=== PATIENT | male | born 1935 | race Caucasian/White ===

== ENCOUNTER → 2019-04-29 | Day surgery (SDC) | payer MEDICARE, BC ==
--- NOTE | 2019-04-25 14:09 | Diagnostic Imaging Report ---
PROCEDURE: X-RAY CHEST, TWO VIEWS COMPARISON: None. INDICATIONS: PRE OP FOR BLADDER SX FINDINGS: LUNGS: No consolidations or edema.Scattered foci of linear opacity likely reflects age-related or post inflammatory fibrosis. PLEURA: No effusions or pneumothorax. HEART & MEDIASTINUM: The heart is within normal size-limits. Atherosclerotic calcification of the thoracic aorta. No pulmonary edema. BONES & SOFT TISSUES: No acute findings. CONCLUSION: No acute cardiopulmonary abnormality. Dictated by: Lincoln Hudson M.D. on 04/25/2019 at 14:13 Electronically approved by: Lincoln Hudson M.D. on 04/25/2019 at 14:13
[2019-04-25 14:36] LABS: BASOPHILS % 0.4 % (0.0-1.0); EOSINOPHILS # (AUTO) 0.1 (0.0-0.4); EOSINOPHILS % 1.3 % (0.0-6.0); HEMATOCRIT 46.8 % (38.2-49.6); HEMOGLOBIN 15.1 g/dL (14.0-18.0); LYMPHOCYTES # (AUTO) 1.7 (1.0-3.2); LYMPHOCYTES % 30.9 % (18.0-39.1); MEAN CORPUSCULAR HEMOGLOBIN 29.9 pg (28-32); MEAN CORPUSCULAR HGB CONC 32.3 g/dL (31-35); MEAN CORPUSCULAR VOLUME 92.7 fL (81-99); MONOCYTES # (AUTO) 0.5 (0.2-0.8); MONOCYTES % 8.9 % (4.4-11.3); NEUTROPHILS # (AUTO) 3.1 (2.1-6.9); NEUTROPHILS % 58.3 % (38.7-80.0); PLATELET COUNT 176 x10e3/uL (140-360); RED BLOOD COUNT 5.05 x10e6/uL (4.3-5.7); RED CELL DISTRIBUTION WIDTH 12.9 % (11.7-14.4)
[2019-04-25 14:43] LABS: INR 0.96; PARTIAL THROMBOPLASTIN TIME 32.4 seconds (23.8-35.5); PROTHROMBIN TIME 13.3 seconds (11.9-14.5)
[2019-04-25 14:52] LABS: ALANINE AMINOTRANSFERASE 21 IU/L (0-55); ALBUMIN 4.1 g/dL (3.5-5.0); ALBUMIN/GLOBULIN RATIO 1.4 (0.8-2.0); ALKALINE PHOSPHATASE 91 IU/L (40-150); ANION GAP 12.7 mmol/L (8-16); BLOOD UREA NITROGEN 15 mg/dL (7-26); BUN/CREATININE RATIO 15 (6-25); CALCIUM 9.5 mg/dL (8.4-10.2); CARBON DIOXIDE 30 mmol/L (22-29); CHLORIDE 101 mmol/L (98-107); CREATININE, SERUM 0.97 mg/dL (0.72-1.25); EST GLOMERULAR FILTRATION RATE > 60 ML/MIN (60-); GLUCOSE 99 mg/dL (74-118); POTASSIUM 4.7 mmol/L (3.5-5.1); SODIUM 139 mmol/L (136-145)
[~2019-04-29] MED LIST: CEFOXITIN 1GM/ D5W 50ML 50 ML IV ONE; COMBIGAN EYE DRO5 ML OU; DESFLURANE 240 ML BTL INH ONE; DEXAMETHASONE SOD PHOS INJ 4 MG/ML VIAL ONE; FENTANYL CITRATE/PF 100MCG/2 ML INJ ONE; IOPAMIDOL 610MG/1ML 300 MG/ML VIAL IV ONE; LATANOPROST2.5 ML OP; LUMIGAN2.5 M1 OP; MACROBID 100 M100 MG PO; ONDANSETRON HCL INJ 2MG/ML 2ML 2 MG/ML VIAL ONE; PROPOFOL IV EMULSION 10 MG/ML 20 ML VIAL ONE
--- OUTSIDE RECORDS SUMMARY | 2019-04-29 10:23 | XMS REPORT | Clinical Summary ---
Author Author [facility] Address Unknown Phone Unavailable Care Team Providers Care Service Center Supervisor Name Role Phone Stacey Alonso MD PCP Allergies Comments Active Allergy Reactions Severity Noted Date No Known Drug Allergies 05/08/2016 Medications End Date Status Medication Sig Dispensed Refills Start Date Active LUMIGAN 0.01 % ophthalmic INT 1 GTT IN 4 drops OD HS 6 Active COMBIGAN 0.2-0.5 % INSTILL 1 GTT 3 ophthalmic solution IN OD TID 6 Active latanoprost (XALATAN) INT 1 GTT IN 0 0.005 % ophthalmic RIGHT EYE QHS 6 solution Active mucus clearing device Use 10-20 1 Device 0 (AEROBIKA OSCILLATING PEP minutes 3 7 SYSTM) device times a day 07/07/2018 Discontinued riFAMpin (RIFADIN) 300 MG Take 1 180 capsule 0 capsule capsule (300 8 mg total) by mouth 2 (two) times a day for 90 days. 07/07/2018 Discontinued ethambutol (MYAMBUTOL) Take 2 60 tablet 1 400 MG tabletIndications: tablets daily 8 Mycobacterium avium infection (HCC) 07/01/2018 Discontinued azithromycin (ZITHROMAX) 1 tablet 30 tablet 0 250 MG tablet daily for 30 8 days 07/05/2018 azithromycin (ZITHROMAX) 1 tablet 30 tablet 0 250 MG tablet daily for 30 8 days 07/07/2018 Discontinued azithromycin (ZITHROMAX) Take 250 mg 0 250 MG tablet by mouth. Take 2 tablets the first day, then 1 tablet daily for 4 days. 09/06/2018 ethambutol (MYAMBUTOL) Take 2 60 tablet 1 400 MG tabletIndications: tablets daily 8 Mycobacterium avium infection (HCC) 10/05/2018 azithromycin (ZITHROMAX) Take 1 tablet 30 tablet 2 250 MG tablet (250 mg 8 total) by mouth daily for 90 days. 10/05/2018 riFAMpin (RIFADIN) 300 MG Take 1 180 capsule 0 capsule capsule (300 8 mg total) by mouth 2 (two) times a day for 90 days. 03/05/2019 tamsulosin (FLOMAX) 0.4 Take 1 5 capsule 0 mg capsuleIndications: capsule (0.4 9 Hematuria, unspecified mg total) by type, Flank pain, History mouth daily of kidney stones with dinner for 5 days. 04/14/2019 diclofenac (VOLTAREN) 1 % Apply 100 g 2 gel topically 4 9 (four) times a day for 30 days. 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); Mycobacterium avium complex (HCC) 03/15/2019 Office Visit Family Stacey Tabor MD Back pain, unspecified back location, unspecified back pain laterality, unspecified chronicity (Primary Dx); Hematuria, unspecified type; Flank pain; History of kidney stones; Elevated blood pressure reading in office with diagnosis of hypertension 02/28/2019 Office Visit Family Chivo Avina MD MAI (mycobacterium avium-intracellulare) infection (HCC) (Primary Dx) 01/12/2019 Office Visit Pulmonology Joselo Allen MD Skin lesion of face (Primary Dx) 07/09/2018 Office Visit Family Chivo Avina MD Mycobacterium avium infection 07/07/2018 Office Visit Pulmonology Chiqui Lala MA 07/01/2018 Refill Family Medicine Chiqui Lala MA 06/29/2018 Refill Family Medicine Eri Collier MA 06/24/2018 Patient Quality Outreach Joselo Allen MD Mycobacterium avium infection (Primary Dx) 06/17/2018 Orders Only Family Medicine Nany Nicole MD Chest pain at rest (Primary Dx) 06/13/2018 Emergency Emergency Medicine - 06/14/2018 after 04/28/2018 Family History Medical History Relation Name Comments Heart attack Father Cancer Mother stomach? Relation Name Status Comments Father Mother (Age 70) Social History Date Tobacco Use Types Packs/Day Years Used Never Smoker Smokeless Tobacco: Never Used Alcohol Use Drinks/Week oz/Week Comments No Sex Assigned at Date Recorded Not on file Industry Job Start Date Occupation Not on file Not on file Not on file Travel End Travel History Travel Start No recent travel history available. Last Filed Vital Signs Time Taken Vital Sign Reading 03/15/2019 12:52 PM CDT Blood Pressure 135/77 03/15/2019 12:52 PM CDT Pulse 64 03/15/2019 12:52 PM CDT Temperature 36.8 C (98.2 F) 01/12/2019 11:32 AM CDT Respiratory Rate 12 03/15/2019 12:52 PM CDT Oxygen Saturation 97% - Inhaled Oxygen - Concentration 03/15/2019 12:52 PM CDT Weight 69.9 kg (154 lb) 03/15/2019 12:52 PM CDT Height 175.3 cm (5' 9") 03/15/2019 12:52 PM CDT Body Mass Index 22.74 Plan of Treatment Care Team Description Date Type Specialty Chivo Salazar MD [address] [place] [address] [address] [place] [address] [phone] 06/21/2019 Appointment Pulmonology Stacey Alonso MD [address] [address] [address] [place] [address] [phone] 09/05/2019 Office Visit Family Medicine Health Maintenance Due Date Last Done Comments SHINGLES VACCINES (#1) 1987 65+ PNEUMOCOCCAL VACCINE 2002 (1 of 2 - PCV13) INFLUENZA VACCINE 07/08/2019 Postponed from 05/19/2019 (Patient Refused) Procedures Comments Procedure Name Priority Date/Time Associated Diagnosis POC GLYCOSYLATED Routine 03/15/2019 Abnormal glucose HEMOGLOBIN (HGB A1C) 1:56 PM CDT POC URINALYSIS DIPSTICK Routine 03/15/2019 Hematuria, unspecified 1:56 PM CDT type XR ABDOMEN 1 VW Routine 03/01/2019 Hematuria, unspecified 2:03 PM CDT type Flank pain History of kidney stones Elevated blood pressure reading in office with diagnosis of hypertension XR LUMBAR SPINE 2 OR 3 VW Routine 03/01/2019 Back pain, unspecified 2:02 PM CDT back location, unspecified back pain laterality, unspecified chronicity LIPID PANEL Routine 02/28/2019 Elevated blood pressure 1:39 PM CDT reading in office with diagnosis of hypertension TSH REFLEX TO T4F Routine 02/28/2019 Elevated blood pressure 1:39 PM CDT reading in office with diagnosis of hypertension COMPREHENSIVE METABOLIC Routine 02/28/2019 Elevated blood pressure PANEL 1:39 PM CDT reading in office with diagnosis of hypertension CBC WITH PLATELET AND Routine 02/28/2019 Elevated blood pressure DIFFERENTIAL 1:39 PM CDT reading in office with diagnosis of hypertension POC URINALYSIS DIPSTICK Routine 02/28/2019 Back pain, unspecified 1:27 PM CDT back location, unspecified back pain laterality, unspecified chronicity XR CHEST 2 VW STAT 06/14/2018 12:12 AM CDT ECG ED PRELIMINARY Routine 06/13/2018 INTERPRETATION 11:46 PM CDT ZZESTIMATED GFR STAT 06/13/2018 11:35 PM CDT B NATRIURETIC PEPTIDE STAT 06/13/2018 11:35 PM CDT TROPONIN STAT 06/13/2018 11:35 PM CDT COMPREHENSIVE METABOLIC STAT 06/13/2018 PANEL 11:35 PM CDT HC COMPLETE BLD COUNT STAT 06/13/2018 W/AUTO DIFF 11:35 PM CDT ECG 12-LEAD STAT 06/13/2018 10:24 PM CDT after 04/28/2018 Results * POC glycosylated hemoglobin (Hb A1C) (03/15/2019 1:56 PM CDT) POC Hemoglobin 5.9 % A1C Specimen Blood * POC urinalysis dipstick (03/15/2019 1:56 PM CDT) Only the most recent of 2 results within the time period is included. Color urine, Yellow POC Clarity urine, Clear POC Glucose urine, Negative Negative POC Bilirubin Negative Negative urine, POC Ketones urine, Negative Negative POC Specific 1.025 1.005 - 1.030 gravity urine, POC Blood urine, Negative Negative POC pH urine, POC 5.5 5.0, 5.5, 6.0, 6.5, 7.0, 7.5, 8.0, 8.5 Protein urine, Negative Negative POC Urobilinogen <2.0 <2.0 urine, POC Nitrite urine, Negative Negative POC Leukocyte Negative Negative esterase urine, POC Specimen Urine * XR Abdomen 1 Vw (03/01/2019 2:03 PM CDT) Specimen Narrative Performed At EXAMINATION:XR ABDOMEN 1 VW [facility] CLINICAL HISTORY:R31.9 Hematuriaunspecified, R10.9 Unspecified abdominal pain, flank painhx of nephrolithiasis COMPARISON:CT from 05/08/2015 IMPRESSION: 1.No radiopaque calculi identified overlying the renal contours or along the course of the ureters in the abdomen. 2.There is a 2 cm jagged calcification in the pelvis corresponding to bladder calculus seen on prior CT. Adjacent 1.1 cm calcification in the right pelvis may be in the bladder or near the right ureter orifice. This was not evident on prior CT. Multiple pelvic phleboliths present. 3.Bowel gas pattern is nonobstructive. There is no gross intra-abdominal free air. 4.Degenerative changes of the osseous structures noted. [id number] Procedure Note Interface, Radiology Results Incoming - 03/01/2019 2:23 PM CDT EXAMINATION: XR ABDOMEN 1 VW CLINICAL HISTORY: R31.9 Hematuria unspecified, R10.9 Unspecified abdominal pain, flank pain hx of nephrolithiasis COMPARISON: CT from 05/08/2015 IMPRESSION: 1. No radiopaque calculi identified overlying the renal contours or along the course of the ureters in the abdomen. 2. There is a 2 cm jagged calcification in the pelvis corresponding to bladder calculus seen on prior CT. Adjacent 1.1 cm calcification in the right pelvis may be in the bladder or near the right ureter orifice. This was not evident on prior CT. Multiple pelvic phleboliths present. 3. Bowel gas pattern is nonobstructive. There is no gross intra-abdominal free air. 4. Degenerative changes of the osseous structures noted. [id number] Performing Organization Address City/State/Zipcode Phone Number [facility] [address] [place] [address] * XR Lumbar Spine 2 Or 3 Vw (03/01/2019 2:02 PM CDT) Specimen Narrative Performed At PROCEDURE:XR [facility]BAR SP[facility] 2 [facility] 3 [facility]:M54.9 Dorsalgiaunspecified, Back painrisk factors (osteoporosis or chronic steroid use or elderly) COMPARISON:None. TECHNIQUE: 3 Views of the lumbar spine were performed in the AP, lateral, and coned-down lateral views of the lumbosacral junction. FINDINGS: The vertebral body height are maintained.There is no fracture or malalignment. Tears spondylosis without loss of disc height. Facet arthropathy at L4-L5 and L5-S1. The lateral and posterior elements are intact. There is no soft tissue abnormality. Osteoarthritis of the sacroiliac joints. IMPRESSION: 1. There is no acute fracture or subluxation. 2. Anterior spondylosis without loss of disc height. 3. Facet arthropathy at L4-L5 and L5-S1. 4. Osteoarthritis of the sacroiliac joints. [id number] Procedure Note Interface, Radiology Results Incoming - 03/01/2019 2:09 PM CDT PROCEDURE: XR LUMBAR SPINE 2 OR 3 VW CLINICAL HISTORY: M54.9 Dorsalgia unspecified, Back pain risk factors (osteoporosis or chronic steroid use or elderly) COMPARISON: None. TECHNIQUE: 3 Views of the lumbar spine were performed in the AP, lateral, and coned-down lateral views of the lumbosacral junction. FINDINGS: The vertebral body height are maintained. There is no fracture or malalignment. Tears spondylosis without loss of disc height. Facet arthropathy at L4-L5 and L5-S1. The lateral and posterior elements are intact. There is no soft tissue abnormality. Osteoarthritis of the sacroiliac joints. IMPRESSION: 1. There is no acute fracture or subluxation. 2. Anterior spondylosis without loss of disc height. 3. Facet arthropathy at L4-L5 and L5-S1. 4. Osteoarthritis of the sacroiliac joints. [id number] Performing Organization Address [facility]/Zipcode Phone Number [facility] [address] [place] [address] * TSH reflex to T4 (02/28/2019 1:39 PM CDT) TSH reflex to 3.52 0.40 - 4.50 mIU/L [facility] FT[employer] [place] Specimen Blood Resulting Agency Comment Performing Organization Information: Site ID: [id number] Name: [facility] Address: [address] [place] [phone] Director: Liliam Jacobson Performing Organization Address [facility] Centercode Phone Number [employer] [address] [phone] * CBC with platelet and differential (02/28/2019 1:39 PM CDT) Only the most recent of 2 results within the time period is included. WBC 5.1 3.8 - 10.8 [facility] Thousand/uL [employer] [place] RBC 5.09 4.20 - 5.80 [facility] Million/uL [facility] [place] HGB 15.3 13.2 - 17.1 g/dL [employer] [place] HCT 45.1 38.5 - 50.0 % [employer] [place] MCV 88.6 80.0 - 100.0 fL [employer] [place] MCH 30.1 27.0 - 33.0 pg [employer] [place] MCHC 33.9 32.0 - 36.0 g/dL [employer] [place] RDW 12.7 11.0 - 15.0 % [employer] [place] Platelet count 183 140 - 400 [facility] Thousand/uL [employer] [place] MPV 10.7 7.5 - 12.5 fL [employer] [place] Neutrophils, 3,279 1,500 - 7,800 [facility] absolute cells/uL [facility] [place] Lymphocytes, 1,316 850 - 3,900 cells/uL [facility] absolute [facility] [place] Monocytes, 454 200 - 950 cells/uL [facility] absolute [facility] [place] Eosinophils, 31 15 - 500 cells/uL [facility] absolute [facility] [place] Basophils, 20 0 - 200 cells/uL [facility] absolute [facility] [place] Neutrophils 64.3 % [facility] [place] Lymphocytes 25.8 % [facility] [place] Monocytes 8.9 % [facility] [place] Eosinophils 0.6 % [facility] [place] Basophils + RC 0.4 % [facility] [place] Specimen Blood Resulting Agency Comment Performing Organization Information: Site ID: [id number] Name: [facility] Address: [address] [place] [phone] Director: Liliam Jacobson Performing Organization Address City/State/Zipcode Phone Number [address] [address] * Lipid panel (02/28/2019 1:39 PM CDT) Cholesterol, 197 <200 mg/dL [facility] total [facility] [place] HDL cholesterol 46 >40 mg/dL [facility] [place] Triglycerides 115 <150 mg/dL [facility] [place] LDL cholesterol 128 (H) mg/dL (calc) [facility] calculated Comment: DIAGNOSTICS Reference range: <100 [place] Desirable range <100 mg/dL for primary prevention; <70 mg/dL for patients with CHD or diabetic patients with > or=2 CHD risk factors. LDL-C is now calculated using the Hardy-Rafaela calculation, which is a validated novel method providing better accuracy than the Friedewald equation in the estimation of LDL-C. Hardy SS et al. PETERSON. 2013;310(19): 6135-6395 (http://education.iCAD.com/faq/NEL443) Cholesterol/HDL 4.3 <5.0 (calc) [facility] [place] Non-HDL 151 (H) <130 mg/dL (calc) [facility] cholesterol Comment: DIAGNOSTICS For patients with diabetes [place] plus 1 major ASCVD risk factor, treating to a non-HDL-C goal of <100 mg/dL (LDL-C of <70 mg/dL) is considered a therapeutic option. Specimen Blood Resulting Agency Comment Performing Organization Information: Site ID: [id number] Name: [facility] Address: [address] [place] [phone] Director: Liliam Jacobson Performing Organization Address [facility] Centercode Phone Number [facility] [employer] [place] [address] [place] [address] * Comprehensive metabolic panel (02/28/2019 1:39 PM CDT) Only the most recent of 2 results within the time period is included. Pathologist [facility] Glucose 105 (H) 65 - 99 mg/dL [facility] Comment: DIAGNOSTICS Fasting [place] reference interval For someone without known diabetes, a glucose value between 100 and 125 mg/dL is consistent with prediabetes and should be confirmed with a follow-up test. BUN, whole 15 7 - 25 mg/dL [employer] blood [facility] [place] Creatinine 0.95 0.70 - 1.11 mg/dL [facility] Comment: DIAGNOSTICS For patients >49 years of age, [place] the reference limit for Creatinine is approximately 13% higher for people identified as -[place]. EGFR Non-Afr. 75 > OR=60 [facility] [place] mL/min/1.73m2 [facility] [place] EGFR 87 > OR=60 [facility] [place] mL/min/1.73m2 [facility][1] BUN/creatinine NOT APPLICABLE 6 - 22 (calc) [facility] ratio [facility] [place] Sodium 141 135 - 146 mmol/L [facility] [place] Potassium 4.3 3.5 - 5.3 mmol/L [facility] [place] Chloride 105 98 - 110 mmol/L [facility] [place] CO2 27 20 - 32 mmol/L [facility] [place] Calcium 9.4 8.6 - 10.3 mg/dL [facility] [place] Protein 6.8 6.1 - 8.1 g/dL [facility] [place] Albumin, S 4.5 3.6 - 5.1 g/dL [facility] [place] Globulin, total 2.3 1.9 - 3.7 g/dL [facility] (calc) [facility] [place] Albumin/globuli 2.0 1.0 - 2.5 (calc) [facility] n ratio [facility] [place] Total bilirubin 0.5 0.2 - 1.2 mg/dL [facility] [place] Alkaline 93 40 - 115 U/L [facility] phosphatase [facility] [place] AST 17 10 - 35 U/L [facility] [place] ALT 16 9 - 46 U/L [facility] [place] Specimen Blood Resulting Agency Comment Performing Organization Information: Site ID: [id number] Name: [facility] Address: [address] [place] [address] Director: Liliam Jacobson Performing Organization Address City/[facility] Centercode Phone Number [employer] [place] [address] [place] [address] * XR Chest 2 Vw (06/14/2018 12:12 AM CDT) Specimen Narrative Performed At EXAMINATION: XR CHEST 2 VW [facility] CLINICAL HISTORY: Chest Pain COMPARISON:10/31/2015 chest x-ray. IMPRESSION: The lungs are clear. No pleural effusion or pneumothorax. The cardiomediastinal silhouette is normal. No acute osseous abnormalities. [facility]-[id number] Procedure Note Hm Interface, Radiology Results Incoming - 06/14/2018 12:20 AM CDT EXAMINATION: XR CHEST 2 VW CLINICAL HISTORY: Chest Pain COMPARISON: 10/31/2015 chest x-ray. IMPRESSION: The lungs are clear. No pleural effusion or pneumothorax. The cardiomediastinal silhouette is normal. No acute osseous abnormalities. [facility]-[id number] Performing Organization Address [facility]/Zipcode Phone Number [facility] [address] [place] [address] * ECG ED Preliminary Interpretation - NOT AN ORDER (06/13/2018 11:46 PM CDT) Narrative Performed At Nany Nicole MD 06/14/20181:54 AM ECG ED Preliminary Interpretation - Not an Order Performed by: NANY NICOLE Authorized by: NANY NICOLE ECG reviewed by ED Physician in the absence of a clerical coordinator: yes Previous ECG: Previous ECG:Compared to current Comparison ECG info:Prior EK08/03/17 Similarity:No change Interpretation: Interpretation: normal Rate: ECG rate assessment: normal Rhythm: Rhythm: sinus rhythm Ectopy: Ectopy: none QRS: QRS axis:Normal Conduction: Conduction: normal ST segments: ST segments:Normal T waves: T waves: normal Comments: Read at 22:25 * Estimated GFR (06/13/2018 11:35 PM CDT) GFR Non Af Amer 72 mL/min/1.73 m2 [facility]OLOGY AND GENOMIC MEDICINE GFR Af Amer 87 mL/min/1.73 m2 [facility] Comment: OF PATHOLOGY Chronic kidney disease: <60 AND GENOMIC mL/min/1.73m2 MEDICINE Kidney failure: <15 mL/min/1.73m2 The estimated GFR is calculated from the IDMS-traceable Modification of Diet in Renal Disease Equation. The accuracy of the calculation is poor when the creatinine is normal. Calculated values >90 mL/min/1.73m2 are not reported. This equation has not been validated in children (<18 years), women, the elderly (>70 years), or ethnic groups other than Caucasians and Americans. Specimen Plasma specimen Performing Organization Address [facility] [place] [address] PATHOLOGY AND Access [employer] [facility] * Troponin (06/13/2018 11:35 PM CDT) [facility] Troponin <0.30 0.00 - 0.30 ng/mL [facility] Comment: OF PATHOLOGY 0.11 - 1.49 AND GENOMIC ng/ml[place] MEDICINE indicate increased risk of acute coronary syndrome. >=1.5 ng/ml Consistent with acute myocardial infarction. The diagnostic value of a single normal or non-diagnostic result is questionable.Serial samples at 2-6 hour intervals are required to rule out acute myocardial injury. Specimen Plasma specimen Performing Organization Address [facility] [place] [address] PATHOLOGY AND [employer] [facility] * B natriuretic peptide (06/13/2018 11:35 PM CDT) [facility] BNP 45 0 - 100 pg/mL [facility] OF PATHOLOGY AND [facility] [employer] Specimen Blood Performing Organization Address [facility] [place] [address] PATHOLOGY AND [employer] [facility] * ECG 12 lead (06/13/2018 10:24 PM CDT) [facility] Ventricular 64 [facility] rate Atrial rate 64 [facility] SC interval 192 [facility] QRSD interval 94 [facility] QT interval 402 [facility] QTC interval 414 [facility] P axis 1 70 [facility] QRS axis 1 75 [facility] T wave axis 74 [facility] EKG impression Normal sinus rhythm-Cannot [facility] rule out Anterior infarct , age undetermined-Abnormal ECG-No previous ECGs available- Specimen Performing Organization Address [facility] Centercode Phone Number [facility] MUSE [address] [place] [address] after 04/28/2018 Insurance Type Payer Benefit Subscriber ID Effective Phone Address Plan / Dates Group Medicare MEDICARE MEDICARE xxxxxxxxxxx 2002-P FLA[place], PART A AND resent [place] B PPO ROWENA ALLEN xxxxxxxxxxxx 2016- AMBAR AKHTAR Present Advance Directives Patient has advance care planning documents on file. For more information, snow vasquez contact: Flako Cruz [address] [place] [address]
--- OUTSIDE RECORDS SUMMARY | 2019-04-29 10:24 | XMS REPORT ---
Author Author [facility] Address Unknown Phone Unavailable Care Team Providers Care Printing Table Hand Name Role Phone NABILA RM Unavailable Unavailable Problems This patient has no known problems. Allergies, Adverse Reactions, Alerts This patient has no known allergies or adverse reactions. Medications This patient has no known medications. Results Test Description Test Time Test Comments Text Results Atomic Results Result Comments CHEST 2 VIEWS 2019-04-25 14:13:[address] [address] Patient Name: CHARLIE MICHAUD MR #: [id number] : 1935 Age/Sex: 83/M Req #: [id number] [facility] Physician: Ordered by: NABILA RM MD Report #: [id number] Location: OR Room/Bed: Procedure: [id number] DX/CHEST 2 VIEWS Exam Date: 04/25/19 Exam Time: 1249 REPORT STATUS: Signed PROCEDURE: X-RAY CHEST, TWO VIEWS COMPARISON: None. INDIC ATIONS: PRE OP FOR BLADDER SX FINDINGS: LUNGS: No consolidations or edema. Scattered foci of linear opacity likely reflects age-related or post inflammatory fibrosis. PLEURA: No effusions or pneumothorax. HEART MEDIASTINUM: The heart is within normal size-limits. Atherosclerotic calcification of the thoracic aorta. No pulmonary edema. BONES SOFT TISSUES: No acute findings. CONCLUSION: No acute cardiopulmonary abnormality. Dictated by: Neno Rowland M.D. on 04/25/2019 at 14:13 Electronically approved by: Neno Rowland M.D. on 04/25/2019 at 14:13 Dictated By: NENO ROWLAND MD 1413 Transcribed By: JENNIFER on 04/25/19 1413 COPY TO: NABILA RM MD
[2019-04-29 14:45] VITALS: BP 121/59
--- NOTE | 2019-04-29 19:31 | Operative Report ---
DATE OF PROCEDURE: 04/29/2019 SURGEON: Morgan Francois MD PREOPERATIVE DIAGNOSIS: Bladder calculi 3 cm to 5 cm. POSTOPERATIVE DIAGNOSIS: Bladder calculi 3 cm to 5 cm. OPERATION PERFORMED: Cystoscopy with holmium laser lithotripsy. ANESTHESIA: General. INDICATIONS: This patient is an 83-year-old white male, who was referred to me by Dr. Alonso. The patient had been having low back pain and during the course of his evaluation by his primary care physician he was found to have bladder calculi. The patient had a CT scan obtained on March 31 that revealed two small 1 to 2 mm kidney stones bilaterally. There were two large stones in the bladder. The largest was estimated 2.5 to 3 cm in size and smallest was about 1 cm in size. For further details, please refer to the history and physical. DESCRIPTION OF PROCEDURE: The procedure was done in the following fashion, the patient was taken to the operating room and placed under general anesthesia and dressed with Hibiclens in lithotomy position in the usual fashion. A 22-Serbian Olympus cystoscope was inserted with a 30-degree oblique lens. The prostate was estimated about 40 g with an enlarged lobe. As I entered the bladder, I could immediately see a branch of the stone poking into the prostatic urethra. When this was pushed back, apparently there were two stones there. The size of the stones was underestimated on CT. The smaller stone was about 1 cm in size, but the large stone had a main body that was about 3 cm in size and it also had numerous spikes sticking out of it. It was shaped like a Jaquan, so if you go from the end of one spike to another spike it was at least 5 cm in size. The irrigation for the bladder was performed with normal saline and I used a 1000 micron holmium laser probe. It was set at 12 joules and 12 hertz and the stone was then slowly fragmented taking care to avoid injury to the bladder. This took at least over an hour because of the size of the stone and care was taken to avoid injury to the bladder. The stone fragments were evacuated using an Ellik and at the end of the procedure all I could see left in the bladder was some dust particles. There was no evidence of bladder perforation. In view that the patient had been under anesthesia for this period of time and in view that he had an enlarged middle lobe and his prostate that was estimated about 40 to 50 g, I decided to put a 20-Serbian Salinas catheter in. My plan at this time is to leave the Salinas catheter in for 2 hours and then have the catheter removed for trial of voiding. If the patient is able to void, he will then go home on Macrobid 100 mg p.o. twice daily for 10 days. If he cannot urinate, he can go home with a Salinas catheter, I can remove the catheter in the office. The total number of laser time was 3399 seconds and the total number of joules was 42,493 joules. The patient left the operating room in good condition with 20-Serbian Salinas catheter. Morgan Francois MD SRA/MODL /[id number]
== END | disposition home or self-care (01) ==
LOC: OR 10:20
PROVIDERS: ATTEND Urology
DX: N21.0 Calculus in bladder (principal); N20.0 Calculus of kidney; N40.0 Benign prostatic hyperplasia without lower urinary tract symptoms; K64.4 Residual hemorrhoidal skin tags; M51.37 Other intervertebral disc degeneration, lumbosacral region; H40.89 Other specified glaucoma; Z01.810 Encounter for preprocedural cardiovascular examination; Z01.812 Encounter for preprocedural laboratory examination; Z01.818 Encounter for other preprocedural examination
CPT/HCPCS: 36415; 52318; 71046; 80053; 85025; 85610; 85730; 88300; 93005; J1100; J2405; J2704; J3010